=== PATIENT | male | born 1960 | race Caucasian/White ===

== ENCOUNTER → 2018-01-09 08:15 | Outpatient (CLI) | payer OTHER, SELFPAY ==
--- NOTE | 2018-01-09 08:20 | RAD_ITS ---
STUDY: X-RAY - PELVIS AND RIGHT HIP REASON FOR EXAM: Male, 57 years old. Pain TECHNIQUE: Radiological exam, hip, unilateral, with pelvis when performed; 2 or 3 views. COMPARISON: None. FINDINGS: There is marked osteoarthritis of the right hip. 3 cannulated screws transfix the right femoral head and neck. There is an intramedullary alem at the right femur. The left hip, symphysis pubis and SI joints are intact. There is no acute fracture. There is no osseous erosion. There is no osseous destruction. RAD/HIP, UNI W/ Pelvis 2-3 Views IMPRESSION: Marked osteoarthritis of the right hip Status post fixation at the proximal right femur and femoral shaft Electronically Signed: Bebo Yoon MD at 9:40 EDT Tel , Service support ,
--- NOTE | 2018-01-09 08:24 | US_ITS ---
STUDY: ABDOMINAL ULTRASOUND - RIGHT UPPER QUADRANT REASON FOR VISIT: Male, 57 years old. Elevated liver function tests with history of fatty liver. TECHNIQUE: Ultrasound evaluation of the right upper quadrant was performed with real-time and static mcneal-scale imaging. TECHNICAL QUALITY: Adequate. COMPARISON: None. FINDINGS: Liver: The liver measures 16.7 cm. Echogenic parenchyma consistent with hepatic steatosis The bile ducts are within normal limits. There is hepatic color flow. The direction of portal flow is hepatopetal. There is no demonstrated mass lesion. Gallbladder: Normal distended gallbladder. The gallbladder wall measures 3 mm. There is a negative sonographic Muñoz's sign. There is no pericholecystic fluid. There are no gallstones. Common Bile Duct (C.B.D.): The common bile duct measures mm. Pancreas: Normal size of the head, body and tail of the pancreas. There is normal echogenicity of the pancreas. There is no demonstrated pancreatic mass or cyst. Right Kidney: Normal size of the right kidney. The right kidney measures 10.5 cm. Normal renal cortex. The right cortex measures 1.5 cm. There is no demonstrated renal mass or cyst. There is no right hydronephrosis. US/Abdomen Limited IMPRESSION: There is evidence of hepatic steatosis without hepatomegaly. Normal appearance of the gallbladder and biliary tree. Electronically Signed: Brian Moura, at 9:59 EDT Tel , Service support ,
== END ==
PROVIDERS: Family Provider Internal Medicine; PCP Internal Medicine; Visit Provider Internal Medicine
DX: K76.0 Fatty (change of) liver, not elsewhere classified (principal); R94.5 Abnormal results of liver function studies; M16.11 Unilateral primary osteoarthritis, right hip; G89.29 Other chronic pain
CPT/HCPCS: 73502; 76705

== ENCOUNTER → 2018-12-08 14:17 | Outpatient (CLI) | payer OTHER, SELFPAY ==
--- NOTE | 2018-12-08 14:59 | EKG12_ITS ---
Test Reason : Blood Pressure : / mmHG Vent. Rate : 057 BPM Atrial Rate : 057 BPM P-R Int : 178 ms QRS Dur : 086 ms QT Int : 456 ms P-R-T Axes : -21 -49 014 degrees QTc Int : 443 ms Sinus bradycardia Left axis deviation Abnormal ECG Confirmed by RAMIRO LOVE ([id number]), newspaper managing editor RAYMUNDO VELASQUEZ ([id number]) on 12/09/2018 1:38:00 PM Referred By: Stephane Low Confirmed By:RAMIRO LOVE
--- NOTE | 2018-12-08 15:21 | RAD_ITS ---
STUDY: X-RAY CHEST REASON FOR EXAM: Male, 58 years old. Preop for knee replacement TECHNIQUE: PA and lateral views of the chest. COMPARISON: None. FINDINGS: The lungs are clear and expanded. There is no demonstrated pleural abnormality. Normal size heart. Normal mediastinum and lizette. Normal visualized pulmonary arteries. Normal visualized aortic arch and descending thoracic aorta. Normal visualized thoracic spine. Normal visualized ribs, clavicles, and shoulders. There is no demonstrated abnormality of the visualized soft tissue structures of the upper abdomen. RAD/Chest PA and Lateral IMPRESSION: Normal x-ray examination of the chest. Electronically Signed: Jc Roper MD at 15:43 EDT , Service support ,
[2018-12-08 15:39] LABS: Hemoglobin A1c 6.7 % (4.2-6.3)
== END ==
PROVIDERS: Family Provider Internal Medicine; PCP Internal Medicine; Referring Provider Orthopaedic Surgery; Visit Provider Orthopaedic Surgery
DX: Z01.810 Encounter for preprocedural cardiovascular examination (principal)
CPT/HCPCS: 36415; 71046; 83036; 93005

== ENCOUNTER 2023-08-05 14:27 | Emergency (ER) | payer MEDICAID, SELFPAY ==
[2023-08-05 14:32] VITALS: BP 177/97; PULSE 84; RESP 16; TEMP 36.9; O2SAT 96; BMI 30.4
--- NOTE | 2023-08-05 15:09 | RAD_ITS ---
INDICATION: chest pain EXAMINATION/TECHNIQUE: X-RAY - portable upright AP chest x-ray COMPARISON: 12/08/2018 FINDINGS: LINES/DEVICES: None. LUNGS: No consolidation, edema or effusion. No pneumothorax. MEDIASTINUM AND CARDIOVASCULAR STRUCTURES: Cardiac silhouette not enlarged. Central airways and mediastinal contour are unremarkable. BONES AND SOFT TISSUES: No acute changes. RAD/Chest 1 View (Portable) IMPRESSION: No radiographic evidence of acute cardiopulmonary disease. Electronically Signed: Christian Barreto MD at 15:33 EST ,
--- NOTE | 2023-08-05 15:15 | EKG12_ITS ---
Test Reason : NEW ONSET AFIB Blood Pressure : / mmHG Vent. Rate : 105 BPM Atrial Rate : 000 BPM P-R Int : 000 ms QRS Dur : 072 ms QT Int : 320 ms P-R-T Axes : 000 -49 012 degrees QTc Int : 422 ms Atrial fibrillation with rapid ventricular response with premature ventricular or aberrantly conducte d complexes Left axis deviation Possible Lateral infarct , age undetermined Inferior infarct , age undetermined Abnormal ECG POOR R WAVE PROGRESSION Confirmed by Johann Pfeiffer ([id number]), supervising editor news reel DARLYN VELAZQUEZ ([id number]) on 08/10/2023 2:07:01 PM Referred By: Confirmed By:Johann Pfeiffer
[2023-08-05 15:22] LABS: Absolute Lymphocyte Count 1.44 X10^3/uL (0.83-4.51); Absolute Neutrophil Count 3.8 X10^3/uL (2.0-7.7); Basophil# 0.05 X10^3/uL; Basophil% 0.9 % (0-1); Eosinophil# 0.07 X10^3/uL; Eosinophils% 1.2 % (0-5); Hematocrit 47.3 % (40-54); Lymphocyte # 1.44 X10^3/ul (0.83-4.51); Lymphocyte % 24.6 % (19-41); Mean Corp Hgb Conc 33.8 g/dL (32-36); Mean Corpuscular Hgb 33.8 pg (27.0-32.0); Mean Corpuscular Volume 99.8 fL (80-94); Mean Platelet Vol. 9.3 fl (6.2-12.0); Monocyte# 0.47 X10^3/uL; NRBC Flagged by Analyzer 0 % (0-5); Neutrophil # 3.78 X10^3/uL (2.7-7.7); Neutrophil % 64.6 % (47-70); Platelet Count 181 K/mm3 (150-450); RBC Distribution Width CV 13.9 % (11.6-14.6); RBC Distribution Width SD 50.8 fl (35.1-43.9); Red Blood Count 4.74 M/mm3 (4.6-6.2); White Blood Count 5.9 K/mm3 (4.4-11.0)
--- NOTE | 2023-08-05 15:29 | EDS_ITS ---
HPI <Lee Ann Hay RN - Last Filed: 08/05/23 16:23> History of Present Illness Chief Complaint: Chest Other Detail of Chief Complaint: New onset atrial fibrillation Informant: patient Onset/Context/Timing Onset: - (Unknown) Current Severity: 0/10 Maximum Severity: 0/10 Associated Symptoms Associated Symptoms: Negative for Parasthesias, Weakness, Loss of function, Inability to ambulate, Loss of consciousness or Amnesia Narrative Narrative: Patient with past medical history significant for diabetes and hypertension presents to the ED via EMS for new onset atrial fibrillation. He was at the [facility] in [place] where he was being seen for a preoperative appointment for a knee replacement scheduled on 08/20/2023. Patient was found to be in A-fib. He is asymptomatic denying dizziness, lightheaded, chest pain, palpitations, or shortness of breath. He denies recent hospitalizations or recent travel. He is a non-smoker. Reports drinking 2-3 beers 2-3 times a week. He has no prior history of CAD. He has never been seen by cardiology or had a cardiac workup including stress test or heart catheterization. Prior similar symptoms: No Recent Illness/Hospitalization: No PFSH <Lee Ann Hay RN - Last Filed: 08/05/23 16:23> PFSH Medical History (Updated 08/05/23 @ 16:[address] Vern Hogue MD) Diabetes Femur fracture Hypertension Medical History no medical history Home Medications apixaban 5 mg (74 tabs) tablets in a dose pack (Eliquis DVT-PE Treat 30D Start) 5 mg PO BID #74 tabs 08/05/23 [Rx Last Taken Unknown] glipizide 5 mg tablet 5 mg PO DAILY 08/05/23 [History Last Taken Unknown] lisinopril 30 mg tablet 30 mg PO DAILY 08/05/23 [History Last Taken Unknown] metformin 500 mg tablet,extended release 24 hr 500 mg PO BID 08/05/23 [History Last Taken Unknown] metoprolol succinate 100 mg tablet,extended release 24 hr 100 mg PO DAILY 08/05/23 [History Last Taken Unknown] metoprolol tartrate 50 mg tablet (Lopressor) 50 mg PO BID 30 days #60 tabs 08/05/23 [Rx Last Taken Unknown] Allergy/AdvReac Type Severity Reaction Status Date / Time No Known Allergies Allergy Verified 08/05/23 15:17 Family History (Updated 08/05/23 @ 15:35 by Lee Ann Hay RN) Father , Head trauma No problems noted. Mother CAD (coronary artery disease) Brother CAD (coronary artery disease) Surgical History (Updated 08/05/23 @ 15:36 by Lee Ann Hay RN) Total knee replacement status Social History Smoking Status: Never smoker ROS <Lee Ann Hay RN - Last Filed: 08/05/23 16:23> ROS ED ROS Narrative Awake, alert, well-kept Constitutional Constitutional ED: Denies chills, fever(s) or sweats Eyes Eyes: Denies blurry vision or change in vision ENT ENT ED: Denies rhinorrhea Cardiovascular Cardiovascular: Denies chest pain, palpitations, paroxysmal nocturnal dyspnea or racing heartbeat Respiratory/Chest Respiratory/Chest: Denies cough, dyspnea, dyspnea on exertion or paroxysmal nocturnal dyspnea Gastrointestinal Gastrointestinal: Denies abdominal pain, constipation, diarrhea, nausea or vomiting Genitourinary Genitourinary ED: Denies dysuria, hematuria or urinary frequency Musculoskeletal Musculoskeletal: Reports arthralgias and other Details: Right hip pain ; Denies back pain, myalgias or neck pain Integumentary Denies rash Neurologic Neurologic: Denies headache(s), paresthesias or weakness Psychiatric Psychiatric: Denies anxiety or depression EXAM <Lee Ann Hay RN - Last Filed: 08/05/23 16:23> Physical Exam Const Vital Signs: 08/05/23 14:32 08/05/23 15:11 08/05/23 15:35 Temperature 98.4 F Temperature Source Oral Pulse Rate 84 96 Respiratory Rate 16 16 Blood Pressure 177/97 H 155/92 H Blood Pressure Mean 123 113 Pulse Ox 96 94 Oxygen Delivery Method Room Air Room Air Room Air 08/05/23 16:13 Temperature 98.5 F Temperature Source Pulse Rate 85 Respiratory Rate 18 Blood Pressure 141/91 H Blood Pressure Mean 107 Pulse Ox 94 Oxygen Delivery Method Positive well nourished and well developed General Appearance ED: well developed and NAD HEENT atraumatic Eyes PERRL and EOMs intact bilaterally Neck full ROM Chest Wall inspection of chest normal and palpation of chest normal Resp normal respiratory effort and clear to auscultation bilaterally Auscultation: Negative for rales, rhonchi, wheezes or diminished lung sounds Cardio S1 normal heart sound and S2 normal heart sound Cardio Narrative: Heart rate 80s on monitor Rhythm: abnormal rhythm irregularly irregular GI normal to inspection, nondistended, normoactive bowel sounds and non-tender Palpation: soft; Negative for tender, guarding or rebound tenderness present Back/Spine normal to inspection and no thoracic nor lumbar tenderness Extremity normal to inspection and full ROM General Extremety ED: Negative for edema General Extremity: Negative for edema Neuro oriented x3, CN's II-XII intact bilaterally, moves all extremities and no focal motor deficits Sensorium / Orientation: alert Motor Exam: strength 5/5 throughout Psych mental status grossly normal Skin no rashes or lesions noted, no wounds, skin turgor normal and no jaundice <Dr. Vern Hogue MD - Last Filed: 08/05/23 16:12> Physical Exam Const Vital Signs: 08/05/23 14:32 08/05/23 15:11 08/05/23 15:35 Temperature 98.4 F Temperature Source Oral Pulse Rate 84 96 Respiratory Rate 16 16 Blood Pressure 177/97 H 155/92 H Blood Pressure Mean 123 113 Pulse Ox 96 94 Oxygen Delivery Method Room Air Room Air Room Air 08/05/23 16:13 Temperature 98.5 F Temperature Source Pulse Rate 85 Respiratory Rate 18 Blood Pressure 141/91 H Blood Pressure Mean 107 Pulse Ox 94 Oxygen Delivery Method MDM <Lee Ann Hay RN - Last Filed: 08/05/23 16:23> [facility] Narrative Medical decision making narrative: Patient placed on cardiac sonographer. IV line has already been initiated by EMS. Labwork obtained to evaluate for leukocytosis, anemia, and electrolyte derangement. EKG obtained to evaluate for cardiac arrhythmia/ischemia. Chest x-ray obtained to evaluate for acute lung pathology, cardiac size, or mediastinal abnormality. History & Record Review Discussion w/independent historian: Patient Lab Data Attestation: I reviewed the patient's lab results. Labs: Laboratory Results - last 24 hr 08/05/23 14:38 WBC 5.9 RBC 4.74 Hgb 16.0 Hct 47.3 MCV 99.8 H MCH 33.8 H MCHC 33.8 RDW Std Deviation 50.8 H RDW Coeff of Oz 13.9 Plt Count 181 MPV 9.3 Immature Gran % (Auto) 0.700 Neut % (Auto) 64.6 Lymph % (Auto) 24.6 [place] % (Auto) 8.0 Eos % (Auto) 1.2 Baso % (Auto) 0.9 Absolute Neuts (auto) 3.8 Absolute Lymphs (auto) 1.44 Nucleated RBC % 0 PT 13.9 INR 1.1 APTT 29.1 Sodium 140 Potassium 4.1 Chloride 108 H Carbon Dioxide 24.0 Anion Gap 8 BUN 18 Creatinine 1.11 Estim Creat Clear Calc 75.58 Est GFR (MDRD) Af Amer 86 Est GFR (MDRD) Non-Af 71 BUN/Creatinine Ratio 16.2 Glucose 153 H Calcium 9.6 Troponin I High Sens 10 Radiography Diagnostic Testing: Clinical Impression(s) from Imaging Studies Chest X-Ray 08/05/23 15:09 IMPRESSION: No radiographic evidence of acute cardiopulmonary disease. Electronically Signed: Christian Barreto MD at 15:33 EST Reading Location ID and State: [address] [address] Tel , Service support , EKG Initial EKG: Interpretation: Atrial Fibrillation Comments: A-fib with rate 105. No ischemia noted. Prior EKG tracings: not available for review Management Discussion w/another healthcare provider: Other (Dr. Hogue, ED provider) Treatment and Re-Evaluation Narrative: Lab and imaging results reviewed. CBC shows a normal white count of 5.9 with 64.6 neutrophil, hemoglobin 16, platelets 181. Coagulation studies are unremarkable. Chemistry significant for elevated glucose. 153. High- sensitivity troponin negative at 10. Chest x-ray shows no acute cardiopulmonary process. Upon reevaluation, patient awake and alert laying in bed. No distress noted. Dr. Pfeiffer consulted by Dr. Hogue. Patient to be started on Eliquis and metoprolol. Dr. Pfeiffer to see patient in the ER and patient will follow-up with him in the office next week. Patient agreeable with plan. Patient to be discharged home. <Dr. Vern Hogue MD - Last Filed: 08/05/23 16:12> [facility] Narrative Medical decision making narrative: Patient placed on cardiac sonographer. IV line has already been initiated by EMS. Labwork obtained to evaluate for leukocytosis, anemia, and electrolyte derangement. EKG obtained to evaluate for cardiac arrhythmia/ischemia. Chest x-ray obtained to evaluate for acute lung pathology, cardiac size, or mediastinal abnormality. I have personally performed a face to face assessment of the patient and have reviewed the VICKI Note. I performed a substantive portion of the visit including all aspects of the following. My bolanos findings include: History is 63-year-old male sent over from the [facility] due to new onset A-fib found in preop testing. Pending total hip elective surgery. Exam is [well-appearing 61-year-old male. Vital signs stable afebrile. Heart rate about 90. Pulse ox 96% on room air no signs of hypoxia. H EENT exam unremarkable. Neck nontender. Lungs clear to auscultation bilaterally. Heart A-fib rate rate around 100. No murmur. Abdomen soft. Moving all 4 extremities. Calves are nontender without edema or cords. Neurologically is awake and alert with no focal motor deficits.] Medical Decision Making [patient A-fib. Otherwise his workup is negative. I spoke to Dr. Abdifatah santiago. Patient be started on Lopressor 50 twice daily Eliquis for anticoagulation. Dr. Pfeiffer is actually coming over to the emergency department to meet the patient and will follow him up in the office next week.] Other additions or changes: [None] Lab Data Lab results narrative: CBC white count of 5. H&H 16 and 47. Platelets 181. PT, INR of 13 and 1.1. Electrolytes show a gap of 8. Normal BUN and creatinine. Glucose 153. Troponin 10. Labs: Laboratory Results - last 24 hr 08/05/23 14:38 WBC 5.9 RBC 4.74 Hgb 16.0 Hct 47.3 MCV 99.8 H MCH 33.8 H MCHC 33.8 RDW Std Deviation 50.8 H RDW Coeff of Oz 13.9 Plt Count 181 MPV 9.3 Immature Gran % (Auto) 0.700 Neut % (Auto) 64.6 Lymph % (Auto) 24.6 [place] % (Auto) 8.0 Eos % (Auto) 1.2 Baso % (Auto) 0.9 Absolute Neuts (auto) 3.8 Absolute Lymphs (auto) 1.44 Nucleated RBC % 0 PT 13.9 INR 1.1 APTT 29.1 Sodium 140 Potassium 4.1 Chloride 108 H Carbon Dioxide 24.0 Anion Gap 8 BUN 18 Creatinine 1.11 Estim Creat Clear Calc 75.58 Est GFR (MDRD) Af Amer 86 Est GFR (MDRD) Non-Af 71 BUN/Creatinine Ratio 16.2 Glucose 153 H Calcium 9.6 Troponin I High Sens 10 Radiography Chest X-Ray - ED: 1 View, Read by ED Physician, Read by Radiologist, Heart, Lungs, Mediastinum, Bony Structures, No Acute Disease and Chronic Changes Diagnostic Testing: Clinical Impression(s) from Imaging Studies Chest X-Ray 08/05/23 15:09 IMPRESSION: No radiographic evidence of acute cardiopulmonary disease. Electronically Signed: Christian Barreto MD at 15:33 EST Reading Location ID and State: [facility] / [place] Tel , Service support , Chest x-ray, portable, single view interpreted by myself the radiologist shows no acute abnormality. Normal cardiac silhouette. Normal lung rob. Rhythm Strip Rhythm Strip: A-fib Rate: 105 Ectopy: None EKG Initial EKG: Attestation: I personally reviewed and interpreted this EKG as follows: Discharge Plan Triage Chief Complaint: Chest Other ED Provider: Vern Hogue Dx/Rx/DC Orders Clinical Impression: Diabetes, Atrial fibrillation, new onset, Hypertension Instructions: AFib Prescriptions: New metoprolol tartrate [Lopressor] 50 mg tablet 50 mg PO BID 30 Days Qty: 60 0RF Eliquis DVT-PE Treat 30D Start 5 mg (74 tabs) tablets,dose pack 5 mg PO BID Qty: 74 0RF Rx Instructions: New onset A-fib. Being treated with a starter pack of Eliquis for the first 30 days. No Action glipizide 5 mg tablet 5 mg PO DAILY lisinopril 30 mg tablet 30 mg PO DAILY metformin 500 mg tablet extended release 24 hr 500 mg PO BID metoprolol succinate 100 mg tablet extended release 24 hr 100 mg PO DAILY Primary Care Provider: Abigail Cleaning Referrals: Johann Pfeiffer MD [Med Staff - Active Staff] - As soon as possible Abigail Cleaning MD [Primary Care Provider] - Activity Restrictions/Additional Instructions: You have a irregular heartbeat called atrial fibrillation. For that you will be started on a medication control your heart rate called Lopressor which she will take twice a day. You will also be started on the blood thinner Eliquis because when you have A- fib you can develop blood clots. I spoke to the associate relations specialist Dr. Johann Pfeiffer today. He is going to come down and see you in the ER. She will follow-up with him in the office next week. The blood thinner Eliquis will thin out your blood obviously. If you fall and hit your head or hit your head very hard you need to be evaluated in the emergency department. If you start having any significant bleeding in your stool, urine or nosebleeds you need to be evaluated. Or if you develop severe bruising. Most people do quite well with this medication. Disposition Disposition: Home, Self Care
[2023-08-05 15:35] VITALS: BP 155/92; PULSE 96; RESP 16; O2SAT 94
[2023-08-05 15:35] LABS: International Normalized Ratio 1.1; Partial Thromboplast Time 29.1 Seconds (24.1-36.2); Prothrombin Time (Protime)PT. 13.9 SECONDS (11.7-14.9)
[2023-08-05 15:44] LABS: Anion Gap 8 (5-15); BUN 18 mg/dL (7-18); BUN/Creat Ratio 16.2 RATIO (10-20); Calcium,Total 9.6 mg/dL (8.5-10.1); Chloride 108 mmol/L (98-107); Creatinine, Serum 1.11 mg/dL (0.70-1.30); EST Glomerular Filtration Rate 71 mL/min (>60); Est Glom Filt Rate - Afr Amer 86 mL/min (>60); Estimated Creatinine Clearance 75.58 ml/min; Glucose 153 mg/dL (74-106); Potassium 4.1 mmol/L (3.5-5.1); Sodium Level 140 mmol/L (136-145); Troponin-I HS (w/2H Reflex) 10 pg/mL (3.0-78.0)
[2023-08-05 16:13] VITALS: BP 141/91; PULSE 85; RESP 18; TEMP 36.9; O2SAT 94
[2023-08-05 17:17] LABS: Reflex Troponin-HS? (from REC) Y
== END 2023-08-05 16:32 | disposition home or self-care (01) ==
PROVIDERS: Emergency Provider Emergency Medicine; PCP Student in an Organized Health Care Education/Training Program; Visit Provider Emergency Medicine
DX: E11.9 Type 2 diabetes mellitus without complications (principal); I48.91 Unspecified atrial fibrillation; I10 Essential (primary) hypertension; Z79.84 Long term (current) use of oral hypoglycemic drugs; Z79.899 Other long term (current) drug therapy
CPT/HCPCS: 71045; 80048; 84484; 85025; 85610; 85730; 93005; 99284; A4216

== ENCOUNTER → 2023-08-11 | Outpatient (CLI) | payer MEDICAID, SELFPAY ==
--- NOTE | 2023-08-11 09:26 | ECHOCS_ITS ---
Reason For Study: unspecified ATRIAL FIBRILLATION Procedure This was a 2D Doppler, Color Flow transthoracic echocardiogram. The study was technically difficult. Due to body habitus. Contrast injection was performed. Exam performed in department. Left Ventricle Normal LV size. The estimated ejection fraction is 65 %. Unable to assess diastolic dysfunction. No regional wall motion abnormalities noted. Right Ventricle Normal RV size. Normal systolic function. Atria Normal left atrium. Normal right atrium. No doppler evidence for ASD. Mitral Valve There is moderate to severe mitral annular calcification. There is no mitral valve stenosis. No mitral valve insufficiency. Tricuspid Valve There is no tricuspid stenosis. Unable to estimate RV systolic pressure due to inadequate jet, pulmonary artery pressure probably normal. Aortic Valve Trisinus/trileaflet aortic valve. There is no aortic stenosis. Trivial aortic valve insufficiency. Pulmonic Valve There is no pulmonic valvular stenosis. No pulmonic valve insufficiency. Great Vessels Normal aortic root. Pericardium/Pleural No pericardial effusion. Medication 22 gauge I.V. with prn adaptor inserted into right arm. Diluted definity 2.5ml given slow IV push to enhance endocardial definition. MMode/2D Measurements & Calculations LVIDd: 4.9 cm IVSd: 1.0 cm Ao root diam: 3.0 cm LVIDs: 3.3 cm LVPWd: 1.00 cm RVDd: 2.9 cm FS: 32.2 % LAV(MOD-bp): 51.0 ml LVAd ap4: 24.9 cm2 LVAd ap2: 21.1 cm2 LAV(MOD-bp) Indexed: 24.7 ml/m2 LVLd ap4: 7.5 cm LVLd ap2: 8.2 cm LAV(MOD-sp2): 52.6 ml EDV(MOD-sp4): 68.6 ml EDV(MOD-sp2): 46.8 ml LAV(MOD-sp4): 44.2 ml EDV(sp4-el): 70.5 ml EDV(sp2-el): 46.1 ml LVAs ap4: 17.0 cm2 LVAs ap2: 13.7 cm2 LVLs ap4: 6.6 cm LVLs ap2: 6.8 cm ESV(MOD-sp4): 36.0 ml ESV(MOD-sp2): 24.0 ml ESV(sp4-el): 37.5 ml ESV(sp2-el): 23.6 ml EF(MOD-sp4): 47.4 % EF(MOD-sp2): 48.6 % EF(sp4-el): 46.9 % SV(MOD-sp4): 32.5 ml SV(MOD-sp2): 22.8 ml SV(sp4-el): 33.0 ml LA A4 area: 17.4 cm2 LA dimension(2D): 3.9 cm RA A4 area: 16.8 cm2 TAPSE: 1.9 cm Time Measurements MV dec time: 0.21 sec Doppler Measurements & Calculations MV E max dominguez: 60.0 cm/sec Lat Peak E' Dominguez: 12.6 cm/sec Med Peak E' Dominguez: 9.3 cm/sec MV A max dominguez: 73.1 cm/sec E/E' lat: 4.8 E/E' med: 6.5 MV E/A: 0.82 MV V2 max: 96.3 cm/sec MV P1/2t max dominguez: 68.9 cm/sec Ao V2 max: 125.6 cm/sec MV max P.7 mmHg MV P1/2t: 68.2 msec Ao max P.3 mmHg MV V2 mean: 46.4 cm/sec Ao V2 mean: 89.5 cm/sec MV mean P.0 mmHg MV dec slope: 295.7 cm/sec2 Ao mean P.6 mmHg MV V2 VTI: 27.7 cm MVA(P1/2t): 3.2 cm2 Ao V2 VTI: 31.4 cm AV (velocity ratio): 0.74 AI max dominguez: 410.1 cm/sec LV V1 max: 109.0 cm/sec PA V2 max: 84.3 cm/sec AI max P.3 mmHg LV V1 max P.8 mmHg PA V2 mean: 66.5 cm/sec AI dec slope: 199.1 cm/sec2 LV V1 mean P.4 mmHg AI P1/2t: 603.4 msec LV V1 mean: 73.4 cm/sec LV V1 VTI: 23.2 cm TR max dominguez: 216.6 cm/sec TR max P.8 mmHg ECHO/Echo Complete W/ Contrast Interpretation Summary The estimated ejection fraction is 65 %. Unable to assess diastolic dysfunction. Trivial aortic valve insufficiency. Ordering Physician: Johann Pfeiffer Referring Physician: Abigail Xiao Performed By: Lilly Gunn, KIMBERLY, RVT
== END | disposition home or self-care (01) ==
PROVIDERS: PCP Student in an Organized Health Care Education/Training Program; Referring Provider Internal Medicine Cardiovascular Disease; Visit Provider Internal Medicine Cardiovascular Disease
DX: I48.91 Unspecified atrial fibrillation (principal)
CPT/HCPCS: 93306; J7050; Q9957; A4216; C8929

== ENCOUNTER → 2023-12-21 | Outpatient (CLI) | payer MEDICAID, SELFPAY | END | disposition home or self-care (01) | PROVIDERS: PCP Student in an Organized Health Care Education/Training Program; Referring Provider Nurse Practitioner Gerontology; Visit Provider Nurse Practitioner Gerontology | DX: I48.0 Paroxysmal atrial fibrillation (principal) | CPT/HCPCS: 93225; 93226 ==